=== PATIENT | male | born 2000 | race Caucasian/White ===

== ENCOUNTER 2025-08-07 16:47 | Emergency (ER) | payer BC, SELFPAY ==
[2025-08-07 16:51] VITALS: BP 155/88
--- NOTE | 2025-08-07 19:58 | ED.GENMED ---
History of Present Illness
General
Chief Complaint: Musculo-Skeletal Complaint
Source: patient and family
Exam Limitations: none
Time Seen by Provider: 08/07/25 19:50
Nursing documentation reviewed up to this point in time: agreed with
History of Present Illness
History of Present Illness:
25-year-old male with a past medical history as noted presents to the ER with his mother and father for evaluation of back pain. Patient reports that he has had chronic back pain for over a year after minor injury while lifting. He says that
it will flareup from time to time. He says that over the weekend he did some golfing and noticed his back was hurting a bit more than usual. Yesterday was playing football and dove for a ball and immediately had severe pain in the right low back
worse than usual. He says he took some Motrin earlier today and iced his back. Has had difficulty getting around due to the pain since which prompted him to come to the ER for evaluation. Pain is mainly in the right lumbar region and does not
radiate. He denies any radicular pain. He denies any numbness or weakness in the legs. He denies any bowel or bladder continence issues.
Review of Systems
Review of Systems
All Other Systems: ROS reviewed and negative except as documented in HPI and ROS
Musculoskeletal: Reports back pain; Denies neck pain
Neurological: Denies headache, weakness or numbness
Phy Exam
Physical Exam
Physical Exam:
General: Awake, alert, oriented x3; appears mildly uncomfortable
Head: Normocephalic, atraumatic
Eyes: Conjunctiva normal
Throat: Airway intact, handling secretions
Neck: Trachea midline, moving freely without pain
Lungs: Breathing comfortably with no evidence of respiratory distress
Heart: Regular rate
Back: No spinal step-offs or midline tenderness in the thoracic or lumbar spine; marked paraspinal tenderness right lumbar L3-L4; negative straight leg raise
Neuro: Cranial nerves grossly intact, speech fluid; motor and sensory intact in the lower extremities bilaterally
Skin: no rash in area of concern
Extremities: No edema in extremities, warm and well-perfused
Scores
Heart Failure Risk
Heart Failure Risk Score: Not Applicable
Heart Score for Chest Pain Patients
STEMI patient?: Not applicable
Withdrawal Assessment of Alcohol
Withdrawal Assessment Completed?: Not applicable
Course
Orders/Labs/Results
Orders:
Orders
08/07/25 19:58
Ketorolac [Toradol] 30 mg IM NOW STA
CR Lumbar Spine 2 Or 3 Views Urgent
Comment:
Reason For Exam: low back pain
Vital Signs
Initial and Last Documented VS:
Initial Vital Signs
Temp Pulse Resp BP Pulse Ox
36.8 C 95 16 155/88 99
08/07/25 16:51 08/07/25 16:51 08/07/25 16:51 08/07/25 16:51 08/07/25 16:51
Last Documented Vital Signs
Temp Pulse Resp BP Pulse Ox
36.6 C 84 16 131/84 98
08/07/25 20:25 08/07/25 20:25 08/07/25 20:25 08/07/25 20:25 08/07/25 20:25
MDM/Problems Addressed
Differential Diagnosis Includes:
Vertebral fracture, disc herniation, myofascial strain/muscular spasm
MDM/Problems Addressed:
25-year-old male presents for evaluation of low back pain as described above�had an initial injury a year ago which flares up from time to time but pain much worse since diving for football yesterday. Pain located in the right low back. No red
flag symptoms or exam findings for cauda equina or other spinal emergency. Given traumatic mechanism we will plan to check x-ray of the lumbar spine. Will treat symptomatically. Reassess at the above.
History reviewed by me shows no acute fractures. Pain control with Toradol. Plan to discharge with instructions for stretching, heating pad, NSAIDs and referral to orthopedist for outpatient follow-up. All questions answered.
*Radiology
Radiology exam reviewed: preliminary read by ED provider
*Pulse Oximetry
SaO2: 99
Oxygen Mode of Delivery: Room air
Patient hypoxic: no (99%)
*Critical Care Note
Total Time (30-74mins, 75-104mins- exclusive of procedures): Not Applicable
Data Reviewed
Source: patient and family (Mother and father)
ED Attending Note
-
Portions of this chart may have been created with voice recognition software.� Occasional wrong word or��sound alike� substitutions may have occurred due to the inherent limitations of voice recognition software.
Discharge Plan
Departure
Patient Disposition: Home (Routine Discharge)
Date of Disposition: 08/07/25
Time of Disposition: 21:00
Patient with high blood pressure during this ER visit?: Yes
Discharge Problem:
Low back pain
Instructions: Low back pain - ED (DC)
Referrals:
Shanti Mckinney MD [Family Provider, Family Practice]
Andre Garcia MD [Active, Orthopedics] - Call in 1-3 days for appt
Referral Note: Back specialist
Activity Restrictions/Additional Instructions:
Thank you for visiting the Emergency Department at [facility].
1. Please schedule a follow up appointment as directed. Call first thing tomorrow morning to make an appointment.
2. If indicated, please take your medications as instructed and indicated on discharge paperwork.
3. If any of your symptoms do not improve, or persist, or become more severe within 6-12 hours, please return to the emergency department for further care.
4. Please return to the emergency department if you develop a headache, neck pain/stiffness, fever greater than 100.4F, chest pain, shortness of breath, persistent nausea, vomiting, slurred speech, difficulty walking, numbness/tingling, weakness,
signs of infection or any other symptoms that are worrisome to you.
Please call [phone] if you have any questions.
Interventions
Interventions:
*Risk Screen - Suicide Last Done: 08/07/25 16:51
*General Assessment Last Done: 08/07/25 20:00
*Neglect/Abuse Screening Last Done: 08/07/25 20:00
*ED- Fall Risk Assessment Last Done: 08/07/25 20:00
*ED COVID-19 Vaccine History Last Done: 08/07/25 20:00
*ED Influenza Vaccine History Last Done: 08/07/25 20:00
ED-Musculoskeletal Assessment Last Done: 08/07/25 20:25
Discharge Date and Time
Print Language: BELARUSIAN
[2025-08-07] MEDS: TORADOL 30 MG IM (20:19)
[2025-08-07 20:25] VITALS: BP 131/84
== END 2025-08-07 21:07 | disposition home or self-care (01) ==
LOC: EMR 16:47
PROVIDERS: EMERGENCY PHYSICIAN Emergency Medicine; FAMILY PHYSICIAN Family Medicine
DX: M54.50 Low back pain, unspecified (principal); G89.21 Chronic pain due to trauma; R03.0 Elevated blood-pressure reading, without diagnosis of hypertension
CPT/HCPCS: 99284; 96372; 72100